=== PATIENT | female | born 1995 | race Caucasian/White ===

== ENCOUNTER 2017-06-05 12:25 | Emergency (ER) | payer OTHER ==
[2017-06-05 12:36] VITALS: RESP 16; TEMP 99
[2017-06-05] MEDS ORDERED: NS 1,000 ML IV ONE (13:38)
[2017-06-05] MEDS ORDERED: DEXAMETHASONE 10 MG/ML VIAL IVP ONE (13:38)
[2017-06-05 13:44] LABS: PLATELET COUNT 219 10^3/uL (150-400)
[2017-06-05] MEDS ORDERED: KETOROLAC 30 MG/1 ML SDV IVP ONE (14:02)
[2017-06-05] MEDS ORDERED: CLINDAMYCIN 600 MG/DEXTROSE 50 ML IV ONE (14:02)
--- NOTE | 2017-06-05 16:15 | EDPHY ---
H & P Smoking Status: Never smoked Time Seen by Provider: 06/05/17 13:14 HPI/ROS: CHIEF COMPLAINT: Sore throat, dysphagia HISTORY OF PRESENT ILLNESS: 22-year-old female presents to the emergency department with sore throat and dysphagia. The patient states symptoms began yesterday. They initially started with sore throat and then she developed swollen glands. The patient was initially seen at [facility] and started on cefdinir. She developed a rash today and went to urgent care and they advised her to stop the cefdinir and she was started on clindamycin. Apparently she was unable to swallow the clindamycin because she has such a bad sore throat was so swollen in her throat and she was advised to come to the emergency department for evaluation. No fevers or chills. No nasal congestion , rhinorrhea or cough. No vomiting. No nausea. No headache. No reported trauma. Apparently patient had what sounds like a peritonsillar abscess in 2012 and she states that this feels similar. She has had mono in the past. REVIEW OF SYSTEMS: Constitutional: No fever, no chills. Eyes: No double or blurry vision. ENT: sore throat. Dysphagia as above Respiratory: No cough, no shortness of breath. Cardiac: No chest pain. Gastrointestinal: No abdominal pain, vomiting or diarrhea. Genitourinary: No dysuria. Musculoskeletal: No neck or back pain. Skin: No rashes. Neurological: No headache. (Vanessa Mitchell) Past Medical/Surgical History: Peritonsillar abscess, mono (Vanessa Mitchell) Social History: [employer] student (Vanessa Mitchell) Physical Exam: General Appearance: Alert, no distress. 37.2 temp, 96% on room air, 108/88, heart rate 101 Eyes: Pupils equal and round. Extraocular motions are all intact. ENT: Mouth: Mucous membranes moist. Posterior pharyngeal injection noted with swelling noted to the tonsillar pillar as well as soft palate. She has a slightly muffled voice. No trismus. No sublingual swelling. Neck is supple. She has anterior cervical lymphadenopathy noted. Respiratory: No wheezing, rhonchi, or rales, lungs are clear to auscultation. Cardiovascular: Regular rate and rhythm. Gastrointestinal: Abdomen is soft and nontender, no masses, no rebound or guarding, bowel sounds normal. Neurological: Alert and oriented x 3, cranial nerves II through XII grossly intact Skin: DUs diffuse erythematous macular papular rash to her chest, abdomen, upper extremities and her back. Her face and lower extremities are spared. Musculoskeletal: Nontender to palpate along the cervical, thoracic or lumbar spine. Neck is supple. Extremities: Full range of motion and no peripheral edema. Psychiatric: Patient is oriented X 3, there is no agitation. (Vanessa Mitchell) Constitutional: Initial Vital Signs Temperature (C) 37.2 C 06/05/17 12:33 Heart Rate 101 H 06/05/17 12:33 Respiratory Rate 16 06/05/17 12:33 Blood Pressure 108/88 H 06/05/17 12:33 O2 Sat (%) 96 06/05/17 12:33 O2 Delivery Mode Room Air Allergies/Adverse Reactions: cefdinir Allergy (Verified 06/05/17 12:32) Penicillins Allergy (Verified 06/05/17 12:29) Home Medications: Medication Instructions Recorded Clindamycin 06/05/17 Prednisone 06/05/17 Medical Decision Making ED Course/Re-evaluation: 22-year-old female presents to the emergency department with sore throat and swollen tonsils. Clinically I do not think this patient has a peritonsillar abscess. She has swelling noted to both tonsillar pillars bilaterally. I did speak with the on-call ENT T since he was evaluating another patient in the emergency department. Dr. Alvaro Cerda, also evaluated the patient. He did not recommend any incision and drainage or imaging. He agreed with IV clindamycin and IV steroids. He did not feel this patient had peritonsillar abscess. He did not recommend imaging studies. He will see her in follow-up. Patient was given 600 mg of IV clindamycin, 10 mg of IV Decadron, and 30 mg of IV Toradol. 4:15 p.m.: Patient is feeling much better. She is tolerating p.o. Fluids. She is comfortable being discharged home. Patient was instructed to return to the emergency department she developed difficulty swallowing, difficulty breathing, recurring fever, or any other concerns. Patient had a rapid strep screen at [facility] yesterday which was negative and had a rapid strep screen at urgent care today which was negative. This was not repeated in the emergency department. (Vanessa Mitchell) I did not see this patient while she was in the emergency department. However her care was discussed with PA while the patient was in the department. I agree with treatment plan and management (Mingo Russo) Differential Diagnosis: Including but not limited to viral pharyngitis, strep pharyngitis, mononucleosis , peritonsillar abscess, allergic reaction, viral syndrome (Vanessa Mitchell) - Data Points Laboratory Results: Laboratory Results 06/05/17 12:33 06/05/17 12:33 Medications Given: Discontinued Medications Dexamethasone (Decadron Injection) 10 mg IVP EDNOW ONE Stop: 06/05/17 13:39 Last Admin: 06/05/17 13:43 Dose: 10 mg Sodium Chloride (Ns) 1,000 mls @ 0 mls/hr IV ONCE ONE PRN Reason: Wide Open Stop: 06/05/17 13:39 Last Admin: 06/05/17 13:43 Dose: 1,000 mls Clindamycin Phosphate/Dextrose (Cleocin 600 Mg (Premix)) 50 mls @ 100 mls/hr IV EDNOW ONE PRN Reason: Protocol Stop: 06/05/17 14:31 Last Admin: 06/05/17 14:19 Dose: 50 mls Ketorolac Tromethamine (Toradol) 30 mg IVP EDNOW ONE Stop: 06/05/17 14:03 Last Admin: 06/05/17 14:19 Dose: 30 mg Departure - Departure Disposition: Home, Routine, Self-Care Clinical Impression: Sore throat Condition: Good Instructions: Pharyngitis (ED) Additional Instructions: Continue your clindamycin as prescribed. You may take another dose of Decadron tomorrow. Ibuprofen 600 mg every 8 hr as needed for pain. Return to the emergency department if you developed difficulty swallowing, Referrals: Mingo Cerda MD [Medical Doctor] - 2-3 days, if not improved (ENT that evaluate you in the emergency department.)
[2017-06-05 16:23] VITALS: BP 105/79; PULSE 81; O2SAT 99
== END 2017-06-05 16:25 | disposition home or self-care (01) ==
DX: J02.9 Acute pharyngitis, unspecified (principal)
CPT/HCPCS: 96365; J1100; J1885